=== PATIENT | male | born 1940 | race Caucasian/White ===

== ENCOUNTER 2019-03-26 06:09 | Inpatient (IN) | payer MEDICARE ==
[2019-03-23 12:16] VITALS: BMI 27.3
[2019-03-26] MEDS ORDERED: Sodium Chloride 0.9% 10 ML ONE (06:52)
[2019-03-26] MEDS ORDERED: Fentanyl 100 MCG/2 ML VIAL ONE ×3 (07:24→10:25)
[2019-03-26 07:41] LABS: #Eosinphils 0.5 thou/uL (0.0-0.7); #Lymphocytes 1.7 thou/uL (1.20-3.40); #Monocytes 0.4 thou/uL (0.11-0.59); #Neutrophils 3.3 thou/uL (1.40-6.50); %Basophils 0.3 % (0.0-1.0); %Eosinophils 7.8 % (0.0-10.0); %Lymphocytes 28.8 % (21.0-51.0); %Monocytes 6.4 % (0.0-10.0); %Neutrophils 56.7 % (42.0-75.0); Hemoglobin 14.3 g/dL (14.0-18.0); Mean Corpuscular HGB CONC 33.9 g/dL (32.0-36.0); Mean Corpuscular Hemoglobin 32.8 pg (27.0-31.0); Mean Platelet Volume 8.3 fL (7.4-10.4); Platelet Count 215 thou/uL (130-400); RBC Distribution Width 13.4 % (11.5-14.5); Red Blood Cell (RBC) Count 4.34 mill/uL (4.70-6.10); White Blood Cell (WBC) Count 5.8 thou/uL (4.8-10.8)
[2019-03-26 08:01] LABS: Anion Gap 12 mmol/L (10-20); BUN (Urea Nitrogen) 28 mg/dL (8.4-25.7); Calc. Creatinine Clearance 68 mL/min (70-130); Calcium 10.3 mg/dL (7.8-10.44); Carbon Dioxide 26 mmol/L (23-31); Chloride 109 mmol/L (98-107); Estimated GFR-MDRD 72; Glucose 116 mg/dL (83-110); Potassium 4.6 mmol/L (3.5-5.1); Sodium 142 mmol/L (136-145)
[2019-03-26] MEDS ORDERED: traMADol HCl 50 MG TAB PO PRN ×2 (10:16)
[2019-03-26] MEDS ORDERED: Promethazine 25 MG TAB PO PRN (10:16)
[2019-03-26] MEDS ORDERED: Promethazine HCl 12.5 MG SUPP PR PRN (10:16)
[2019-03-26] MEDS ORDERED: HYDROcodone/Acetaminophen 10/325 mg Tablet PO PRN (10:16)
[2019-03-26] MEDS ORDERED: diphenhydrAMINE 50 MG/ML VIAL IVP PRN (10:16)
[2019-03-26] MEDS ORDERED: Mag-Al 1200 mg/1200 mg/30 ML UDCUP PO PRN (10:16)
[2019-03-26] MEDS ORDERED: tiZANidine HCl 4 MG TAB PO PRN (10:16)
[2019-03-26] MEDS ORDERED: Morphine 4 MG/ML VIAL SLOW IVP PRN (10:16)
[2019-03-26] MEDS ORDERED: diphenhydrAMINE 25 MG CAP PO PRN (10:16)
[2019-03-26] MEDS ORDERED: Milk Of Magnesia 30 ML UDCUP PO PRN (10:16)
[2019-03-26] MEDS ORDERED: Promethazine HCl 25 MG/ML VIAL IM PRN ×2 (10:16→11:39)
[2019-03-26] MEDS ORDERED: Ondansetron PF 4 MG/2 ML Vial IVP PRN (10:16)
--- NOTE | 2019-03-26 11:38 | OP ---
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 DESCRIPTION OF PROCEDURE: The patient was brought to the operating room and intubated. He was positioned supine with the head in modest extension on a gel-filled donut. An incision was made in the right precervical area and dissected medial to the sternocleidomastoid muscle, identified the anterior cervical spinal, and the level was confirmed by x-ray. We debrided the anterior osteophytes from C3 to C6. The patient's bones were found to be quite soft. Distraction was placed between C3 and C6 and the intervertebral disks were completely removed, decompressing the neural elements. The bony endplates were then decorticated for purpose of arthrodesis and appropriate-sized intervertebral biomechanical PEEK device was brought into the field, filled with demineralized bone matrix, local morselized autograft, and tapped in place securely from C3 to C6. Next, an anterior plate was brought into the field and secured to C3, C4, C5, and C6 using two 14-mm screws at each level. The wound was then extensively irrigated and MAC hemostasis was secured and the wound was closed in anatomic layers over drain. Job ID: [id number]
[2019-03-26] MEDS ORDERED: Ondansetron HCl/PF 4 MG/2 ML Vial IVP PRN (11:39)
[2019-03-26] MEDS ORDERED: Promethazine HCl 25 MG/ML VIAL SLOW IVP PRN (11:39)
[2019-03-26] MEDS: Sodium Chloride 0.9% 1,000 ML IV SCH ×2 (12:32→22:15)
[2019-03-26] MEDS ORDERED: PHENYLEPHRINE-NS 100 MCG/ML 10 ML SYRINGE ONE (14:52)
[2019-03-26] MEDS ORDERED: Dexamethasone 20 MG/5 ML VIAL ONE (14:52)
[2019-03-26] MEDS ORDERED: PROPOFOL 200 MG/20 ML VIAL ONE (14:52)
[2019-03-26] MEDS ORDERED: Rocuronium Bromide 10 MG/ML (10ML VIAL) ONE (14:52)
[2019-03-26] MEDS ORDERED: Lidocaine 1% PF 5 ML VIAL ONE (14:52)
[2019-03-26] MEDS ORDERED: Ondansetron PF 4 MG/2 ML Vial ONE (14:52)
[2019-03-26] MEDS ORDERED: Glycopyrrolate 0.2 MG/ML 5 ML SYRINGE ONE (14:52)
--- NOTE | 2019-03-26 15:19 | EKG ---
Test Reason : PREOP Blood Pressure : / mmHG Vent. Rate : 067 BPM Atrial Rate : 067 BPM P-R Int : 160 ms QRS Dur : 092 ms QT Int : 394 ms P-R-T Axes : 063 046 022 degrees QTc Int : 416 ms Normal sinus rhythm minimal st changes No previous ECGs available Confirmed by DR. Marcela BREAUX ([id number]) on 03/26/2019 3:19:16 PM Referred By: KHADIJAH Confirmed By:DR. Marcela BREAUX
[2019-03-26] MEDS: CEFAZOLIN 2 GM in Premix Bag 1 BAG IVPB SCH (16:01)
[2019-03-26] MEDS: HYDROcodone/Acetaminophen 10/325 mg Tablet PO PRN (18:36)
[2019-03-26] MEDS ORDERED: Ondansetron PF 4 MG/2 ML Vial SLOW IVP PRN (21:50)
[2019-03-26] MEDS: Morphine 2 MG/ML SYRINGE SLOW IVP PRN (22:13)
[2019-03-27] MEDS: CEFAZOLIN 2 GM in Premix Bag 1 BAG IVPB SCH (00:39)
[2019-03-27] MEDS: Morphine 2 MG/ML SYRINGE SLOW IVP PRN ×2 (00:55→04:42)
[2019-03-27] MEDS ORDERED: CEFAZOLIN 2 GM in Premix Bag 1 BAG IVPB SCH (08:00)
[2019-03-27] MEDS: HYDROcodone/Acetaminophen 10/325 mg Tablet PO PRN ×4 (09:50→23:01)
[2019-03-27] MEDS: Lisinopril 10 MG TAB PO SCH (09:51)
[2019-03-27] MEDS: Allopurinol 300 MG TAB PO SCH (09:51)
[2019-03-27] MEDS: Multivit, Therapeutic 1 TAB PO SCH (09:51)
[2019-03-27] MEDS: Rosuvastatin 5 MG TAB PO SCH (09:51)
--- NOTE | 2019-03-27 11:09 | PRG ---
DATE OF SERVICE: 03/27/2019 SUBJECTIVE: The patient is an 78-year-old male, who was recently evaluated in our office for cervical degenerative disease and underwent C3-C6 ACDF on 03/26/2019. Following the surgery, he was transitioned to the Med/Surg floor. He has had significant postoperative nausea and vomiting. This is improved with nausea medication, Zofran and Phenergan. He has still been unable to tolerate much p.o. at this point. Other complaints include soreness in the posterior aspect of the neck and some hoarse voice. He is also complaining of some dry mouth. He denies any radicular features, numbness, tingling, weakness. He has been sitting up occasionally on the side of the bed, but has not done much mobilizing at this point. OBJECTIVE: On my exam this morning, he is awake, alert, in no acute distress. He has free active range of motion of all extremities. No focal motor weakness. His voice is sore. His incision is clean, dry, intact, soft. CAROL drain is in place with small amount of dark red in the bulb. Only 28 mL of output overnight. PLAN: We will continue to work on postoperative nausea and vomiting as well as mobilizing the patient and pain control. We will have him remove his CAROL drain and discontinue his IV antibiotics. Anticipate that his postoperative nausea and vomiting will improve over the next day or two. We will continue to monitor closely. Job ID: [id number] [facility]
[2019-03-27] MEDS: Sodium Chloride 0.9% 1,000 ML IV SCH (13:27)
[2019-03-28] MEDS: Sodium Chloride 0.9% 1,000 ML IV SCH (01:55)
[2019-03-28] MEDS: HYDROcodone/Acetaminophen 10/325 mg Tablet PO PRN (05:33)
[2019-03-28 07:45] VITALS: TEMP 98.2
[2019-03-28] MEDS: Lisinopril 10 MG TAB PO SCH (08:40)
[2019-03-28] MEDS: Multivit, Therapeutic 1 TAB PO SCH (08:40)
[2019-03-28] MEDS: Allopurinol 300 MG TAB PO SCH (08:40)
[2019-03-28] MEDS: Rosuvastatin 5 MG TAB PO SCH (08:40)
[2019-03-28 08:44] VITALS: BP 136/70
--- NOTE | 2019-03-29 03:33 | DIS ---
DATE OF ADMISSION: 03/26/2019 DATE OF DISCHARGE: 03/28/2019 HOSPITAL COURSE: The patient is an 78-year-old male, status post C3-C6 ACDF. Following the surgery, he was transitioned to the Med/Surg floor, where his pain was well controlled with p.o. medications. He did have significant postop nausea and vomiting, but this improved during his admission course as well as with the treatment of Zofran and Phenergan. He is now tolerating a regular diet without any difficulty. He is voiding appropriately. He has been ambulating throughout the department without any issues. On my exam this morning, the patient is sitting up, awake, alert, in no acute distress. He has free active range of motion of all extremities. No focal motor weakness. His incision is clean, dry, and intact. His CAROL drain was removed on postoperative day #1. We will plan to dismiss the patient to home. I have discussed home care precautions and provided the patient with prescriptions for [place], Zanaflex, and Zofran. We will follow up in 2 weeks. The patient is advised to hold his aspirin for the next 2 weeks. Job ID: [id number]
== END 2019-03-28 10:00 | disposition home or self-care (01) | DRG 473 ==
LOC: SURG A 06:09 → SURG B 11:07
PROVIDERS: ADMIT Neurological Surgery; ATTEND Neurological Surgery
PROC: 0RG20A0 Fusion of 2 or more Cervical Vertebral Joints with Interbody Fusion Device, Anterior Approach, Anterior Column, Open Approach (ICD-10-PCS; principal; 2019-03-26)
PROC: 0RB30ZZ Excision of Cervical Vertebral Disc, Open Approach (ICD-10-PCS; 2019-03-26)
DX: M47.22 Other spondylosis with radiculopathy, cervical region (principal); M50.122 Cervical disc disorder at C5-C6 level with radiculopathy; I10 Essential (primary) hypertension; E78.5 Hyperlipidemia, unspecified; N40.0 Benign prostatic hyperplasia without lower urinary tract symptoms; R11.2 Nausea with vomiting, unspecified; Z88.2 Allergy status to sulfonamides; Z79.899 Other long term (current) drug therapy; Z79.82 Long term (current) use of aspirin
CPT/HCPCS: 36415; 76000; 80048; 85025; 93005; 93010; C1713; C1776; J0690; J1100; J2001; J2270; J2405; J2550; J2704; J3010; J3490; Q0169

== ENCOUNTER 2019-04-12 10:31 | Outpatient (CLI) | payer MEDICARE ==
--- NOTE | 2019-04-12 12:52 | RAD ---
CERVICAL SPINE SERIES FOUR VIEWS: HISTORY: Follow up surgery. FINDINGS: The patient has undergone and anterior cervical fusion with placement of plate and screws extending f rom C3 to C6. Markers of disk implants are within the confines of the disk levels. Degenerative disk narrowing is seen at C6-C7. IMPRESSION: Postoperative changes of the spine. POS: EH
== END 2019-04-12 10:32 | disposition home or self-care (01) ==
LOC: TBSIIMAG 10:31
PROVIDERS: ATTEND Neurological Surgery
DX: M54.12 Radiculopathy, cervical region (principal); Z98.890 Other specified postprocedural states
CPT/HCPCS: 72040